=== PATIENT | female | born 1975 | race Hispanic/Latino ===

== ENCOUNTER 2020-07-19 09:32 | Emergency (ER) | payer OTHER ==
[~2020-07-19] VITALS: Ht 157.5 cm; Wt 73.5 kg
== END 2020-07-19 11:54 | disposition home or self-care (01) ==
LOC: ED 09:32
DX: G43.909 Migraine, unspecified, not intractable, without status migrainosus (principal); Z88.0 Allergy status to penicillin
CPT/HCPCS: 70496; 80048; 84703; 85025; 99284-25; J0780; J1100; J1200; J7030; Q9967